=== PATIENT | female | born 1960 | race Caucasian/White ===

== ENCOUNTER 2016-06-24 21:17 | Observation (INO) | payer OTHER ==
[~2016-06-24] VITALS: Ht 161.3 cm; Wt 89.7 kg
[~2016-06-24 21:17] MED LIST: ADVAIR 250/501 DISK IH; ALBUTEROL SULF8.5 GM IH; ANAPROX DS550 M1 PO; DITROPAN XL10 MG PO; DITROPAN XL5 MG PO; EXCEDRIN; EXCEDRIN EXTRA1 EACH PO; FAMOTIDINE20 MG PO; FERROUS SULFAT325 MG PO; HYDROCODON-ACE1 EAC9 PO; LORCET 5-325 M1 EACH PO; LOVENOX40 MG/0.4 SC; MULTI COMPLETE1 EACH PO; NAPROSYN250 MG PO; NICODERM CQ1 EAC2 TD; NICOTINE PATCH1 EACH TD; OXYCONTIN10 MG PO; ROXICODONE5 MG PO; SKELAXIN800 MG PO; ZANTAC150 MG PO; ZESTRIL10 MG PO
[2016-06-24 21:44] LABS: HEMATOCRIT 40.1 % (36.0-46.0); MCH 29.9 PG (29.0-34.0); MCHC 32.9 G/DL (30.0-36.0); MCV 90.7 FL (83-99); MEAN PLAT.VOLUME 10.3 uM^3 (9.5-12.4); PLATELET COUNT 312 K/uL (156-360); RBC DIS.WIDTH-CV 13.2 % (11.8-14.6); RED BLOOD COUNT 4.42 M/uL (3.80-5.20); WHITE BLOOD COUNT 11.2 K/uL (4.1-10.2)
[2016-06-24 21:52] LABS: CHLORIDE 99 mEq/L (99-109); POTASSIUM 3.9 mEq/L (3.7-5.4); SODIUM 138 mEq/L (136-147)
[2016-06-24 21:54] LABS: GLUCOSE 119 mg/dL (70-99)
[2016-06-24 21:55] LABS: ANION GAP 9 MEQ/L (2-14)
[2016-06-24 21:58] LABS: GFR ESTIMATE (CALCULATED) > 59 mL/min/
[2016-06-24 21:59] LABS: UREA NITROGEN (BUN) 21 mg/dL (9-23)
[2016-06-24 22:06] LABS: TROP-I INTERPRETATION NEGATIVE; TROPONIN-I < 0.01 ng/mL (0.0-0.30)
[2016-06-24] MEDS ORDERED: VENTOLIN HFA18 GM IH (23:32)
[2016-06-24] MEDS ORDERED: ADVAIR 250/501 DISK IH (23:32)
[2016-06-24] MEDS ORDERED: PRINIVIL10 MG PO (23:33)
[2016-06-24] MEDS ORDERED: ZOCOR20 MG PO (23:33)
[2016-06-24] MEDS ORDERED: DITROPAN XL10 MG PO (23:34)
[2016-06-24] MEDS ORDERED: VITAMIN D2000 UNIT PO (23:34)
[2016-06-24] MEDS ORDERED: B-12500 MC1 SL (23:34)
[2016-06-24] MEDS ORDERED: ASCORBIC ACID500 M3 PO (23:35)
[2016-06-25 01:02] VITALS: BP 125/64
[2016-06-25 04:53] VITALS: BP 102/57
[2016-06-25 08:44] LABS: TROP-I INTERPRETATION NEGATIVE; TROPONIN-I < 0.01 ng/mL (0.0-0.30)
[2016-06-25 08:52] VITALS: BP 113/63
[2016-06-25 11:29] VITALS: BP 102/58
[2016-06-25 14:13] LABS: TROP-I INTERPRETATION NEGATIVE; TROPONIN-I < 0.01 ng/mL (0.0-0.30)
[2016-06-25] MEDS ORDERED: OMEPRAZOLE40 M1 PO (14:51)
== END 2016-06-25 16:03 | disposition home or self-care (01) ==
LOC: EME 21:17 → EDOF 23:59 → 5WEST 23:59
PROVIDERS: Internal Medicine
DX: R07.9 Chest pain, unspecified (principal); I11.9 Hypertensive heart disease without heart failure; E78.5 Hyperlipidemia, unspecified; J45.40 Moderate persistent asthma, uncomplicated; F17.200 Nicotine dependence, unspecified, uncomplicated; Z96.652 Presence of left artificial knee joint
CPT/HCPCS: 71020; 80048; 84484; 85027; 93005; 94640; 99202; 99281; 99285; G0378; J2270

== ENCOUNTER → 2017-07-14 | Outpatient (CLI) | payer OTHER ==
[~2017-07-14] MED LIST changes: +ASCORBIC ACID500 M3 PO; +B-12500 MC1 SL; +OMEPRAZOLE40 M1 PO; +PRINIVIL10 MG PO; +VENTOLIN HFA18 GM IH; +VITAMIN D2000 UNIT PO; +ZOCOR20 MG PO
== END | disposition home or self-care (01) ==
LOC: CDC 10:32
DX: G56.03 Carpal tunnel syndrome, bilateral upper limbs (principal); M25.531 Pain in right wrist; M25.532 Pain in left wrist
CPT/HCPCS: 93000